=== PATIENT | female | born 1965 | race Caucasian/White ===

== ENCOUNTER → 2018-06-19 11:59 | Outpatient (CLI) | payer OTHER, BC ==
--- NOTE | ~2018-06-19 | ST ---
PATIENT:TOMI PAULSON MEDICAL RECORD: [id number] SEX: F LOCATION:[facility] ORDER #: ADMISSION DATE: 06/19/18 AGE OF PATIENT: 52 REFERRING PHYSICIAN: INTERPRETING PHYSICIAN: INDY BATISTA MD DATE OF SERVICE: 06/19/2018 PROCEDURE: Nuclear stress test. INDICATION: Chest pain, hypertension, hyperlipidemia, abnormal ECG. The patient was exercised on standard Lexiscan protocol with 33 mCi of sestamibi injected at peak stress, 11 mCi were used previously for rest images. FINDINGS: Gated SPECT reveals preserved ejection fraction at 64% with good wall motion and thickening and brightening throughout all segments. SPECT imaging Cardiolite was used as myocardial fusion agent. There is homogeneous uptake throughout all segments at rest and stress with no evidence of inducible ischemia or previous infarction. OVERALL IMPRESSION: 1. This is a normal nuclear stress test with no evidence of inducible ischemia or previous infarction. 2. Gated SPECT reveals a preserved ejection fraction at 64%. In this patient with ongoing symptomatology, the current scan does not suggest the presence of hemodynamically significant coronary artery disease. Evaluate noncardiac etiology of chest pain. TRANSINT:[id number] Voice Confirmation ID: [id number] DOCUMENT ID: [id number] CC: Amanda Jorge, fax not found. INDY BATISTA MD CC: [id number] DICTATION DATE: 06/20/18 08 SKIN CARE SPECIALIST: [id number] DEP CLI 06/19/18 [id number] [place] [address]
== END | disposition home or self-care (01) ==
LOC: D.HCCARDIO 11:59
DX: I20.9 Angina pectoris, unspecified (principal)